=== PATIENT | female | born 1955 | race African-American/Black ===

== ENCOUNTER → 2017-05-22 | Outpatient (CLI) | payer MEDICARE, OTHER ==
--- NOTE | 2017-05-24 10:47 | RAD ---
Bilateral digital mammography with tomosynthesis imaging: History: Routine screening 2-D and 3-D tomosynthesis imaging was performed in CC and MLO projections. Comparison is made to a study from 05/19/2016. The breasts are predominant fatty in nature. There is a tiny smooth nodule in the anteromedial aspect of the right breast which is unchanged. A couple of other very tiny nodular opacities in the breasts were also probably present on the previous study, but less well delineated on those 2-D images compared to today's 3-D images. No new or enlarging breast densities are seen. Benign type calcifications are present. No suspicious microcalcifications have developed. IMPRESSION: There is no mammographic evidence of malignancy in either breast. BI-RADS 3-benign findings Mammography is a sensitive method for finding small breast cancers, but it does not detect them all and is not a substitute for careful clinical examination. A negative mammogram does not negate a clinically suspicious finding and should not result in delay in biopsying a clinically suspicious abnormality. PQRS compliance statement - Patient information was entered into a reminder system with a target due date for the next mammogram.
== END | disposition home or self-care (01) ==
LOC: KCIC MAMMO 10:45
PROVIDERS: ATTEND Internal Medicine
DX: Z12.31 Encounter for screening mammogram for malignant neoplasm of breast (principal)
CPT/HCPCS: 77063; G0202; 77067

== ENCOUNTER → 2018-05-22 | Outpatient (CLI) | payer MEDICARE, OTHER | END | disposition home or self-care (01) | LOC: KCIC MAMMO 11:58 | DX: Z12.31 Encounter for screening mammogram for malignant neoplasm of breast (principal) | CPT/HCPCS: 77063; 77067 ==

== ENCOUNTER 2018-05-27 08:41 | Emergency (ER) | payer MEDICARE, OTHER ==
[2018-05-27] MEDS: HYDROcodone/APAP 5/325MG 1 TAB TABLET PO (09:13)
[2018-05-27] MEDS: CYCLOBENZAPRINE 10 MG TABLET. PO (09:13)
[2018-05-27] MEDS: hydroCHLOROthiazide 25 MG TABLET PO (09:14)
[2018-05-27] MEDS: ONDANSETRON ODT 4 MG TAB.RAPDIS. PO (09:14)
[2018-05-27 09:20] LABS: BILIRUBIN,URINE MODERATE (NEG); CLARITY,URINE CLEAR; COLOR,URINE AMBER; GLUCOSE,URINE 100 mg/dL (NEG); NITRITE,URINE NEGATIVE (NEG); PH,URINE 5.5; PROTEIN,URINE 100 mg/dL (NEG-TRACE)
[2018-05-27 09:45] LABS: BACTERIA,URINE FEW /HPF (0-FEW); HYALINE CASTS, URINE MODERATE /HPF; RBC,URINE OCC /HPF (0-2); SQUAMOUS EPITHELIAL CELL,UR MOD /LPF
[2018-05-27 09:56] LABS: POC GLUCOSE 288 mg/dL (70-99)
[2018-05-27] MEDS: MORPHINE SULFATE 10 MG/ML VIAL. IM (10:07)
== END 2018-05-27 10:32 | disposition home or self-care (01) ==
LOC: ER 08:41
DX: S39.012A Strain of muscle, fascia and tendon of lower back, initial encounter (principal); M54.41 Lumbago with sciatica, right side; M47.816 Spondylosis without myelopathy or radiculopathy, lumbar region; G89.29 Other chronic pain; E11.9 Type 2 diabetes mellitus without complications; I10 Essential (primary) hypertension; J45.909 Unspecified asthma, uncomplicated; Z90.49 Acquired absence of other specified parts of digestive tract; Z90.710 Acquired absence of both cervix and uterus; Z88.6 Allergy status to analgesic agent; X50.0XXA Overexertion from strenuous movement or load, initial encounter; Y93.89 Activity, other specified; Y99.8 Other external cause status; Y92.89 Other specified places as the place of occurrence of the external cause
CPT/HCPCS: 72100; 81001; 82962; 96372; 99285-25; J2270; Q0162

== ENCOUNTER → 2019-08-19 | Outpatient (CLI) | payer MEDICARE, OTHER ==
[2018-05-27 10:08] VITALS: BP 154/93
[~2019-08-19] MED LIST: CYCL10TA2 PO; HYDR-3164 PO; ONDA4TAB10 SL
--- NOTE | 2019-08-19 15:29 | KCIC ---
Bilateral digital screening mammograms with 3-D tomosynthesis: Reason for examination: Routine screening. Comparison is made to previous studies dated 05/22/2018 at 05/22/2017. Bilateral mammograms in CC and oblique projections were obtained with 2-D imaging and 3-D tomosynthesis imaging on a Siemens Inspiration unit and reviewed on the workstation. Interpretation was made with the benefit of CAD. The skin and nipples show no abnormalities. No abnormal axillary lymph nodes are seen. The breast parenchyma shows scattered fatty and fibroglandular density. (Breast density: Category B.) There are no dominant masses, suspicious calcifications or architectural distortion. A few scattered calcifications are seen. Impression: No evidence of malignancy. Recommend routine screening. BI-RAD Category 2: Benign. "Our facility is accredited by the [employer] Mammography Program." This patient's information has been entered into a reminder system for the patient to be notified with the results of her examination and a target date for the next mammogram. Electronically signed by: Debi Akins MD (08/19/2019 3:26 PM) [id number]
== END | disposition home or self-care (01) ==
LOC: KCIC MAMMO 11:12
PROVIDERS: ATTEND Internal Medicine
DX: Z12.31 Encounter for screening mammogram for malignant neoplasm of breast (principal); N64.89 Other specified disorders of breast
CPT/HCPCS: 77063; 77067